=== PATIENT | female | born 1980 | race Asian ===

== ENCOUNTER 2025-05-21 17:47 | Emergency (ER) | payer BC, OTHER ==
[~2025-05-21] VITALS: Ht 160 cm; Wt 50.0 kg
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
[2025-05-21 22:13] VITALS: BP 126/80; PULSE 86; RESP 14; TEMP 99.1; O2SAT 98
== END 2025-05-21 22:36 | disposition home or self-care (01) ==
LOC: ER 17:47 → EDBD 17:47 → ER 22:36
DX: S20.219A Contusion of unspecified front wall of thorax, initial encounter (principal); S80.811A Abrasion, right lower leg, initial encounter; S80.812A Abrasion, left lower leg, initial encounter; R51.9 Headache, unspecified; V89.2XXA Person injured in unspecified motor-vehicle accident, traffic, initial encounter; Y93.I9 Activity, other involving external motion; Y92.488 Other paved roadways as the place of occurrence of the external cause; Y99.8 Other external cause status
CPT/HCPCS: 71250; 81025